=== PATIENT | male | born 1990 | race Caucasian/White ===

== ENCOUNTER 2024-03-15 06:43 | Emergency (ER) | payer BC ==
[2024-03-15] MEDS ORDERED: Amoxicillin/Potassium Clav 875 MG TAB ONE (08:13)
[2024-03-15] MEDS ORDERED: Boostrix 0.5 ML (Tdap) VIAL (>/=7 yrs of age) ONE (08:14)
== END 2024-03-15 08:43 | disposition home or self-care (01) ==
LOC: ERS 06:43
DX: S61.452A Open bite of left hand, initial encounter (principal); S50.811A Abrasion of right forearm, initial encounter; E11.9 Type 2 diabetes mellitus without complications; Z23 Encounter for immunization; W55.01XA Bitten by cat, initial encounter
CPT/HCPCS: 90471; 90715